=== PATIENT | female | born 1985 | race African-American/Black ===

== ENCOUNTER 2020-03-17 10:41 | Emergency (ER) | payer SELFPAY ==
[~2020-03-17] VITALS: Ht 162.6 cm; Wt 82.0 kg
[2020-03-17] MEDS ORDERED: OLANZAPINE 10 MG/VIAL IM ONE ×2 (11:00→11:45)
[2020-03-17] MEDS ORDERED: LORAZEPAM 2MG/ML CPJ IM ONE (11:00)
[2020-03-17 11:30] LABS: CLARITY URINE CLOUDY (CLEAR); COLOR URINE ORANGE (YELLOW); KETONES URINE 1+ (NEGATIVE); LEUKOCYTE ESTERASE URINE 1+ (NEGATIVE); NITRITE URINE POSITIVE (NEGATIVE); OCCULT BLOOD URINE NEGATIVE (NEGATIVE); PH URINE 5.5 (4.5-8.0); PROTEIN URINE 1+ (NEGATIVE); SPECIFIC GRAVITY URINE 1.037 (1.005-1.030)
[2020-03-17 12:01] LABS: *AMPHETAMINES SCREEN URINE NEGATIVE (NEGATIVE); *BARBITURATES SCREEN URINE NEGATIVE (NEGATIVE); *BENZODIAZEPINES SCREEN URINE NEGATIVE (NEGATIVE); *COCAINE SCREEN URINE NEGATIVE (NEGATIVE)
[2020-03-17 12:02] LABS: METHADONE URINE SCREEN NEGATIVE (NEGATIVE); OPIATES URINE SCREEN NEGATIVE (NEGATIVE)
[2020-03-17 12:18] LABS: CANNABINOID URINE SCREEN PRESUMTIVE POSITIVE (NEGATIVE); PHENCYCLIDINE URINE SCREEN PRESUMTIVE POSITIVE (NEGATIVE)
[2020-03-17 12:45] LABS: BASOPHILS % 0.4 % (0.0-2.0); CHLORIDE 101 mEq/L (98-107); EOSINOPHILS % 0.8 % (0.0-5.0); HEMATOCRIT. 37.3 % (36.0-48.0); HEMOGLOBIN. 12.8 g/dL (12.0-16.0); LYMPHOCYTES % 13.5 % (20.0-50.0); MEAN CORPUSCULAR HEMOGLOBIN 30.8 pg (28.0-32.0); MEAN CORPUSCULAR VOLUME 89.4 fL (81.0-99.0); MEAN PLATELET VOLUME 8.6 fl (7.4-10.4); MONOCYTES % 9.5 % (2.0-8.0); NEUTROPHILS % 75.8 % (40.0-76.0); PLATELET 326 x1000/uL (130-400); RED BLOOD CELL COUNT 4.17 mill/uL (4.2-5.4); RED CELL DISTRIBUTION WIDTH 15.1 % (11.6-14.6)
[2020-03-17 12:48] LABS: ETHANOL BLOOD < 10 mg/dL
[2020-03-17 13:00] LABS: HCG SCREEN NEGATIVE
[2020-03-17 13:40] VITALS: BP 134/88
== END 2020-03-17 14:10 | disposition left against medical advice (07) ==
LOC: ER 10:49
DX: T40.991A Poisoning by other psychodysleptics [hallucinogens], accidental (unintentional), initial encounter (principal); F16.129 Hallucinogen abuse with intoxication, unspecified; G92 Toxic encephalopathy; N39.0 Urinary tract infection, site not specified; E87.6 Hypokalemia; F12.90 Cannabis use, unspecified, uncomplicated; Y92.488 Other paved roadways as the place of occurrence of the external cause
CPT/HCPCS: 36415; 80053; 80305; 80307; 80320; 80329; 81003; 81025; 84703; 85025; 96372; 99284; J2060; J3490; G0480

== ENCOUNTER 2024-06-30 14:33 | Emergency (ER) | payer SELFPAY ==
[~2024-06-30] VITALS: Ht 167.6 cm; Wt 73.0 kg
[2024-06-30 14:34] VITALS: BP 106/66; PULSE 88; RESP 16; TEMP 98.6; O2SAT 99
[2024-06-30 15:49] LABS: BASOPHILS % 0.4 % (0.0-2.0); EOSINOPHILS % 10.6 % (0.0-5.0); HEMATOCRIT. 34.3 % (36.0-48.0); HEMOGLOBIN. 11.5 g/dL (12.0-16.0); MEAN CORPUSCULAR HEMOGLOBIN 29.6 pg (28.0-32.0); MEAN CORPUSCULAR HGB CONC 33.4 g/dL (31.0-37.0); MEAN CORPUSCULAR VOLUME 88.6 fL (81.0-99.0); MEAN PLATELET VOLUME 7.4 fl (7.4-10.4); MONOCYTES % 9.6 % (2.0-8.0); NEUTROPHILS % 41.4 % (40.0-76.0); PLATELET 413 x1000/uL (130-400); RED BLOOD CELL COUNT 3.87 mill/uL (4.2-5.4); RED CELL DISTRIBUTION WIDTH 14.5 % (11.6-14.6); WHITE BLOOD COUNT 7.4 x1000/uL (4.5-11.0)
[2024-06-30 15:58] LABS: CHLORIDE 107 mEq/L (98-107); INR 0.9; PARTIAL THROMBOPLASTIN TIME 24.8 sec (23.4-31.0); POTASSIUM 3.5 mEq/L (3.5-5.1); PROTHROMBIN TIME 10.2 sec (9.6-11.0); SODIUM 140 mEq/L (136-145)
[2024-06-30 15:59] LABS: CALCIUM 8.5 mg/dL (8.7-10.4); CARBON DIOXIDE 27 mEq/L (21-32)
[2024-06-30 16:04] LABS: CREATININE 0.8 mg/dL (0.6-1.0); GLUCOSE 79 mg/dL (70-105); UREA NITROGEN BLOOD 10 mg/dL (9-23)
[2024-06-30] MEDS: ACETAMINOPHEN 500MG TABLET PO ONE (17:37)
== END 2024-06-30 17:45 | disposition home or self-care (01) ==
LOC: ER 15:55
DX: M79.604 Pain in right leg (principal); F12.90 Cannabis use, unspecified, uncomplicated; Z98.890 Other specified postprocedural states
CPT/HCPCS: 36415; 80048; 85025; 93971; 99284